=== PATIENT | female | born 1975 | race Caucasian/White ===

== ENCOUNTER 2022-01-09 15:20 | Outpatient (CLI) | payer OTHER, SELFPAY ==
[2022-01-09 17:12] LABS: Free T3 9.8 pg/mL (2.18-3.98); Thyroid Stim Hormone (TSH) < 0.01 uIU/mL (0.358-3.74)
[2022-01-12 21:21] LABS: Thyroid Peroxidase AB 152 IU/mL (0-34)
== END 2022-01-09 23:59 | disposition home or self-care (01) ==
LOC: BIMLAB 15:21
PROVIDERS: PCP Family Medicine; Referring Provider Internal Medicine Endocrinology, Diabetes & Metabolism; Visit Provider Internal Medicine Endocrinology, Diabetes & Metabolism
DX: E05.90 Thyrotoxicosis, unspecified without thyrotoxic crisis or storm (principal)
CPT/HCPCS: 36415; 84439; 84443; 84445; 84481; 86376

== ENCOUNTER 2022-02-03 11:46 | Outpatient (CLI) | payer OTHER, SELFPAY ==
--- NOTE | 2022-02-03 11:50 | NM_ITS ---
STUDY: RADIOPHARMACEUTICAL THERAPY REASON FOR EXAM: Female, 46 years old. Graves disease -- 15 mci please TECHNIQUE: The patient ingested 15 mCi of IODINE-131 for treatment of Graves'' disease. COMPARISON: None. FINDINGS: Patient ingested 15 mCi of IODINE-131 for treatment of Graves'' disease. NM/Therapy I-131 IMPRESSION: The patient ingested 15 mCi of IODINE-131 for treatment of Graves'' disease. Electronically Signed: Tarik Harper MD at 8:56 EDT ,
== END 2022-02-03 23:59 | disposition home or self-care (01) ==
PROVIDERS: PCP Family Medicine; Referring Provider Internal Medicine Endocrinology, Diabetes & Metabolism; Visit Provider Internal Medicine Endocrinology, Diabetes & Metabolism
DX: E05.90 Thyrotoxicosis, unspecified without thyrotoxic crisis or storm (principal)
CPT/HCPCS: 79005; A9517